=== PATIENT | female | born 1950 | race Caucasian/White ===

== ENCOUNTER 2023-01-21 19:42 | Emergency (ER) | payer OTHER ==
[~2023-01-21] VITALS: Ht 157.5 cm; Wt 64.4 kg
[2023-01-21 20:49] VITALS: BP_SYST 111; PULSE 63; RESP 16; TEMP 97.8; O2SAT 94
[2023-01-21] MEDS ORDERED: LIDOCAINE 1% 10 MG/ML, 20 ML MDV SUBCUT ONE (22:30)
[2023-01-21] MEDS ORDERED: DIPHTH,PERTUSS(ACELL),TET VAC 0.5 ML VIAL (Tdap) I.M. ONE (22:30)
[2023-01-21] MEDS ORDERED: BACITRACIN 1 GM OINT TP ONE (23:12)
[2023-01-22] MEDS ORDERED: BACITRACIN 1 GM OINT TP ONE (00:19)
[2023-01-22 00:25] VITALS: BP_SYST 144; PULSE 71; RESP 20; TEMP 97.8; O2SAT 95
== END 2023-01-22 00:25 | disposition home or self-care (01) ==
LOC: SED 19:42
DX: S01.81XA Laceration without foreign body of other part of head, initial encounter (principal); S60.512A Abrasion of left hand, initial encounter; S60.511A Abrasion of right hand, initial encounter; S80.211A Abrasion, right knee, initial encounter; Z79.899 Other long term (current) drug therapy; W01.0XXA Fall on same level from slipping, tripping and stumbling without subsequent striking against object, initial encounter; Y93.89 Activity, other specified; Y92.89 Other specified places as the place of occurrence of the external cause; Y99.8 Other external cause status
CPT/HCPCS: 99285; 70450; 70486; 76376; 90715; 90471; 12011; J2001